=== PATIENT | male | born 1995 | race Caucasian/White ===

== ENCOUNTER 2019-01-31 17:43 | Emergency (ER) | payer MEDICAID ==
[~2019-01-31] VITALS: Ht 195.6 cm; Wt 77.3 kg
[2019-01-31 17:54] VITALS: Ht 195.6 cm; Wt 77.3 kg
[2019-01-31 18:16] LABS: BASOPHILS 0.1 % (0-2); EOSINOPHILS 1.4 % (0-7); HEMATOCRIT 42.6 % (42.0-54.0); HEMOGLOBIN 14.8 g/dL (13.5-17.5); LYMPHOCYTES 28.6 % (15-50); MCH 30.5 pg (26.0-34.0); MCHC 34.7 g/dL (31.0-37.0); MCV 87.8 fL (80.0-100.0); MEAN PLATELET VOLUME 8.9 fL (7.4-10.4); MONOCYTES 5.5 % (2-11); NEUTROPHILS 64.4 % (40-80); PLATELET COUNT 228 10x3/uL (130-400); RBC 4.85 10x6/uL (4.20-6.10); RDW 12.6 % (11.5-14.5); WBC 8.6 10x3/uL (4.8-10.8)
[2019-01-31 18:23] LABS: APPEARANCE CLEAR (CLEAR); BILIRUBIN NEGATIVE (NEGATIVE); COLOR STRAW (YELLOW); GLUCOSE NEGATIVE (NEGATIVE); KETONE NEGATIVE (NEGATIVE); NITRITE NEGATIVE (NEGATIVE); PROTEIN NEGATIVE (NEGATIVE); SPECIFIC GRAVITY 1.005 (1.005-1.020); UROBILINOGEN NORMAL (NORMAL)
[2019-01-31 18:24] LABS: UDS - AMPHET NEGATIVE QUAL (NEGATIVE); UDS - BARB NEGATIVE QUAL (NEGATIVE); UDS - BENZO NEGATIVE QUAL (NEGATIVE); UDS - COCAINE NEGATIVE QUAL (NEGATIVE); UDS - OPIATE NEGATIVE QUAL (NEGATIVE); UDS - PCP NEGATIVE QUAL (NEGATIVE); UDS - THC POSITIVE QUAL (NEGATIVE)
[2019-01-31 18:27] LABS: CALC OSMOLALITY 275 mosm/kg (275-300); CALCIUM 9.3 mg/dL (8.5-10.1); CARBON DIOXIDE 27.4 mmol/L (21.0-32.0); CHLORIDE - SERUM 103 mmol/L (98-107); CREATININE - SERUM 0.8 mg/dL (0.6-1.3); GLUCOSE 101 mg/dL (74-106); POTASSIUM - SERUM 3.5 mmol/L (3.5-5.1); SODIUM 139 mmol/L (136-145); UREA NITROGEN 6 mg/dL (7-18); eGFR NON AFRICAN AMERICAN > 90 mL/min (90-120)
--- NOTE | 2019-01-31 18:31 | NUR ---
DR. BARROSO NOTIIFIED AND SITTER ORDERED. SITTER AT BEDSIDE. NOTIFIED CHARGE NURSE AND ATTENDING IN REGARDS TO ASSESSMENT FINDINGS. RESOURCES GIVEN TO PT AND SAFETY PLAN INITIATED.
[2019-01-31 18:42] LABS: ALBUMIN 4.2 g/dL (3.4-5.0); ALKALINE PHOSPHATASE 72 U/L (46-116); ALT (SGPT) 23 U/L (10-68); BILIRUBIN - TOTAL 0.39 mg/dL (0.2-1.3); PROTEIN - SERUM 7.8 g/dL (6.4-8.2)
[2019-01-31 21:20] VITALS: BP 127/75
== END 2019-01-31 21:34 ==
LOC: D.ER 17:43
PROVIDERS: Family Medicine
DX: F32.9 Major depressive disorder, single episode, unspecified (principal); R45.851 Suicidal ideations

== ENCOUNTER 2019-02-09 17:59 | Emergency (ER) | payer MEDICAID ==
[~2019-02-09] VITALS: Ht 195.6 cm; Wt 85.0 kg
[2019-02-09 18:04] VITALS: Ht 195.6 cm; Wt 85.0 kg
[2019-02-09 18:32] LABS: APPEARANCE CLEAR (CLEAR); BILIRUBIN NEGATIVE (NEGATIVE); COLOR YELLOW (YELLOW); GLUCOSE NEGATIVE (NEGATIVE); KETONE NEGATIVE (NEGATIVE); NITRITE NEGATIVE (NEGATIVE); PROTEIN NEGATIVE (NEGATIVE); UROBILINOGEN NORMAL (NORMAL)
[2019-02-09 18:49] LABS: BASOPHILS 0.2 % (0-2); EOSINOPHILS 1.4 % (0-7); HEMATOCRIT 46.4 % (42.0-54.0); HEMOGLOBIN 16.4 g/dL (13.5-17.5); IMMATURE GRANULOCYTES 0.3 % (0-5); LYMPHOCYTES 30.1 % (15-50); MCHC 35.3 g/dL (31.0-37.0); MCV 87.7 fL (80.0-100.0); MEAN PLATELET VOLUME 9.1 fL (7.4-10.4); MONOCYTES 7.4 % (2-11); NEUTROPHILS 60.6 % (40-80); PLATELET COUNT 271 10x3/uL (130-400); RBC 5.29 10x6/uL (4.20-6.10); RDW 12.4 % (11.5-14.5)
[2019-02-09 18:56] LABS: CALC OSMOLALITY 275 mosm/kg (275-300); CALCIUM 9.9 mg/dL (8.5-10.1); CARBON DIOXIDE 29.4 mmol/L (21.0-32.0); CHLORIDE - SERUM 99 mmol/L (98-107); CREATININE - SERUM 0.9 mg/dL (0.6-1.3); GLUCOSE 98 mg/dL (74-106); POTASSIUM - SERUM 4.1 mmol/L (3.5-5.1); SODIUM 139 mmol/L (136-145); UREA NITROGEN 7 mg/dL (7-18); eGFR NON AFRICAN AMERICAN > 90 mL/min (90-120)
[2019-02-09 18:57] LABS: UDS - AMPHET NEGATIVE QUAL (NEGATIVE); UDS - BARB NEGATIVE QUAL (NEGATIVE); UDS - BENZO NEGATIVE QUAL (NEGATIVE); UDS - COCAINE NEGATIVE QUAL (NEGATIVE); UDS - OPIATE NEGATIVE QUAL (NEGATIVE); UDS - PCP NEGATIVE QUAL (NEGATIVE); UDS - THC NEGATIVE QUAL (NEGATIVE)
[2019-02-09 19:04] LABS: ALBUMIN 4.7 g/dL (3.4-5.0); ALKALINE PHOSPHATASE 82 U/L (46-116); ALT (SGPT) 27 U/L (10-68); BILIRUBIN - TOTAL 0.27 mg/dL (0.2-1.3); MAGNESIUM - SERUM 2.2 mg/dL (1.8-2.4); PROTEIN - SERUM 8.2 g/dL (6.4-8.2)
--- NOTE | 2019-02-09 19:27 | NUR ---
According to the suicide screen the patient rates high and he will need a 1:1 observation. The suicide resource flyer and a copy of the safety plan are provided to the patient.
--- NOTE | 2019-02-09 19:32 | NUR ---
DR. BARROSO NOTIFIED AND SITTER ORDERED. SITTER AT BEDSIDE. NOTIFIED CHARGE NURSE AND ATTENDING IN REGARDS TO ASSESSMENT FINDINGS. RESOURCES GIVEN TO PT AND PT REFUSED SAFETY PLAN.
[2019-02-09 22:40] VITALS: BP 119/60
== END 2019-02-09 22:40 ==
LOC: D.ER 17:59
PROVIDERS: Emergency Medicine
DX: R45.851 Suicidal ideations (principal)

== ENCOUNTER 2019-08-09 09:10 | Emergency (ER) | payer MEDICAID ==
[~2019-08-09] VITALS: Ht 195.6 cm; Wt 84.1 kg
[2019-08-09 09:33] VITALS: BP 123/70; Ht 195.6 cm; Wt 84.1 kg
[2019-08-09] MEDS ORDERED: ACETAMINOPHEN500 M1 PO (10:49)
[2019-08-09] MEDS ORDERED: IBUPROFEN800 MG PO (10:49)
[2019-08-09] MEDS ORDERED: CLEOCIN HCL300 MG PO (10:49)
[2019-08-09] MEDS ORDERED: CYCLOBENZAPRINE10 MG PO (10:49)
[2019-08-09] MEDS ORDERED: KEFLEX500 MG PO (10:49)
[2019-08-09 11:00] LABS: BASOPHILS 0.3 % (0-2); EOSINOPHILS 2.4 % (0-7); HEMATOCRIT 44.5 % (42.0-54.0); IMMATURE GRANULOCYTES 0.1 % (0-5); LYMPHOCYTES 28.5 % (15-50); MCH 30.1 pg (26.0-34.0); MCHC 33.7 g/dL (31.0-37.0); MCV 89.4 fL (80.0-100.0); MEAN PLATELET VOLUME 8.9 fL (7.4-10.4); MONOCYTES 8.5 % (2-11); NEUTROPHILS 60.2 % (40-80); PLATELET COUNT 243 10x3/uL (130-400); RBC 4.98 10x6/uL (4.20-6.10); RDW 12.9 % (11.5-14.5); WBC 7.2 10x3/uL (4.8-10.8)
[2019-08-09 11:06] LABS: CALC OSMOLALITY 271 mosm/kg (275-300); CALCIUM 9.3 mg/dL (8.5-10.1); CARBON DIOXIDE 28.6 mmol/L (21.0-32.0); CHLORIDE - SERUM 102 mmol/L (98-107); CREATININE - SERUM 0.9 mg/dL (0.6-1.3); GLUCOSE 89 mg/dL (74-106); POTASSIUM - SERUM 4.3 mmol/L (3.5-5.1); SODIUM 137 mmol/L (136-145); UREA NITROGEN 9 mg/dL (7-18); eGFR NON AFRICAN AMERICAN > 90 mL/min (90-120)
[2019-08-09 11:12] LABS: ALBUMIN 4.5 g/dL (3.4-5.0); ALKALINE PHOSPHATASE 83 U/L (30-120); ALT (SGPT) 21 U/L (10-68); BILIRUBIN - TOTAL 0.31 mg/dL (0.2-1.3); PROTEIN - SERUM 7.4 g/dL (6.4-8.2)
== END 2019-08-09 11:31 | disposition home or self-care (01) ==
LOC: D.ER 09:10
PROVIDERS: Family Medicine
DX: L03.113 Cellulitis of right upper limb (principal); S60.221A Contusion of right hand, initial encounter; W22.8XXA Striking against or struck by other objects, initial encounter; Y93.9 Activity, unspecified; Y92.9 Unspecified place or not applicable

== ENCOUNTER 2019-09-01 22:49 | Emergency (ER) | payer MEDICAID ==
[~2019-09-01] VITALS: Ht 195.6 cm; Wt 86.2 kg
[~2019-09-01 22:49] MED LIST: ACETAMINOPHEN500 M1 PO; CLEOCIN HCL300 MG PO; CYCLOBENZAPRINE10 MG PO; IBUPROFEN800 MG PO; KEFLEX500 MG PO
[2019-09-01 23:01] VITALS: BP 147/85; Ht 195.6 cm; Wt 86.2 kg
[2019-09-01] MEDS ORDERED: PREDNISONE50 MG PO (23:11)
== END 2019-09-01 23:30 | disposition home or self-care (01) ==
LOC: D.ER 22:49
DX: L23.7 Allergic contact dermatitis due to plants, except food (principal)